=== PATIENT | male | born 1975 | race Caucasian/White ===

== ENCOUNTER 2020-06-04 09:04 | Outpatient (NON) | payer OTHER, SELFPAY ==
[2020-06-04 19:43] LABS: SARS-CoV-2 RNA PCR Positive
== END 2020-06-04 09:05 ==
PROVIDERS: Visit Provider Family Medicine Sports Medicine
DX: U07.1 COVID-19 (principal); R05 Cough; R53.83 Other fatigue; R09.81 Nasal congestion
CPT/HCPCS: C9803; U0003

== ENCOUNTER 2021-06-17 09:28 | Emergency (ER) | payer OTHER, SELFPAY ==
--- NOTE | ~2021-06-17 | CT_ITS ---
EXAMINATION: CT abdomen pelvis w con DATE: 06/17/2021 17:09 INDICATION: Right lower quadrant abdominal pain. TECHNIQUE: Computed tomography (CT) of the abdomen and pelvis was performed with 100 mL Omnipaque 350 intravenous contrast. Automated exposure control and iterative reconstruction technique were employe d. The dose-length product was 1416.24 mGy-cm. COMPARISON: None. FINDINGS: The visualized portions of the lung bases are clear without pneumonia or pleural effusion. The heart size is normal. No pericardial effusion. The liver, gallbladder, spleen, pancreas, adrenal glands, and kidneys are normal. There are no dilated loops of bowel. The appendix is normal. There is diverticulosis of the colon without evidence of diverticulitis. There is an umbilical hernia contain ing fat. There are bilateral inguinal hernias containing fat. There are no pathologically enlarged ly mph nodes. There is no free intraperitoneal fluid. There is severe lower lumbar spondylosis. IMPRESSION: 1. Umbilical hernia and bilateral inguinal hernias containing fat. Reviewed, dictated and finalized at location A. [employer]
[2021-06-17 09:51] VITALS: BP 157/109; PULSE 104; RESP 18; TEMP 36.5; O2SAT 98
[2021-06-17 12:18] VITALS: BP 142/91; PULSE 92; TEMP 36.2; O2SAT 96
[2021-06-17 16:27] VITALS: BP 165/108; PULSE 87; RESP 28; O2SAT 94
[2021-06-17 16:34] LABS: Basophils Absolute Auto 0.1 K/mm3 (0.0-0.1); Basophils Percent Auto 0.5 % (0.2-1.2); Eosinophils Absolute Auto 0.2 K/mm3 (0-0.3); Eosinophils Percent Auto 1.7 % (0-4.4); Hematocrit 47.9 % (42.0-52.0); Hemoglobin 16.3 g/dL (14.0-18.0); Immature Granulocyte Absolute 0.11 K/mm3 (0.00-0.031); Lymphocytes Absolute Auto 3.61 K/mm3 (0.9-3.2); Mean Corpuscular Hemoglobin 31.9 pg (26-34); Mean Corpuscular Volume 93.7 fl (80-100); Mean Platelet Volume 8.9 fl (7.4-10.4); Monocytes Absolute Auto 0.7 K/mm3 (0.1-0.6); Monocytes Percent Auto 5.9 % (2.6-8.5); Neutrophils Absolute Auto 6.6 K/mm3 (1.3-6.7); Neutrophils Percent Auto 58.9 % (45.5-73.1); Platelet Count Result 280 k/mm3 (150-375); Red Blood Count 5.11 M/mm3 (4.6-6.20); Red Cell Distribution Width 12.3 % (11.5-14.5); White Blood Count 11.3 K/mm3 (4.5-10.0)
--- NOTE | 2021-06-17 16:36 | ED.GENADULT ---
HPI - General Adult General Chief complaint: Abdominal Pain Stated complaint: rlq pain Time Seen by Provider: 06/17/21 15:56 Source: patient and RN notes reviewed History of Present Illness HPI narrative: Patient is a 46 y/o male complaining of right side pain starting this morning. He describes his pain as aching and rates it as 7/10. There is no pain radiation. There is no alleviating or exacerbating factor. He has no dysuria, hematuria, vomiting or diarrhea. He states that he fell 2 days ago and had some right back pain, but did not have immediate right side pain. Related Data Home Medications Medication Instructions Recorded Confirmed amlodipine PO DAILY 06/17/21 hydrochlorothiazide PO DAILY 06/17/21 Allergies Allergy/AdvReac Type Severity Reaction Status Date / Time No Known Allergies Allergy Verified 06/17/21 16:33 Review of Systems Constitutional: Constitutional: Denies chills, Denies fever(s), Denies headache(s) and Denies weakness Eyes: Eyes: Denies blurry vision ENT: Denies headache(s) and Denies neck pain Cardiovascular: Cardiovascular: Denies chest pain and Denies dyspnea Respiratory: Respiratory: Denies cough and Denies dyspnea Gastrointestinal: Gastrointestinal: Reports abdominal pain, Denies diarrhea, Denies nausea and Denies vomiting Genitourinary: Genitourinary: Denies hematuria and Denies dysuria Musculoskeletal: Musculoskeletal: Denies back pain and Denies neck pain Neurologic: Denies headache(s) and Denies weakness Exam Const: General: no acute distress and well developed Orientation/consciousness: oriented to person, oriented to place, oriented to time and patient oriented x3 HENMT: Head: normocephalic Ears: external ears normal General nose exam: Normal external nose present Eyes: General: appearance normal, both eyes and all related structures Conjunctivae: conjunctivae normal Neck: Neck: normal visual inspection and full ROM Chest: Chest palpation & inspection: normal inspection of the chest and no tenderness Resp: Effort & Inspection: normal respiratory effort Auscultation: clear to auscultation bilaterally Cardio: Rate: regular rate Rhythm: regular rhythm GI: GI Palp: No abdominal tenderness and Yes Soft to palpation Skin: General skin exam: normal color and turgor normal Neuro: General: oriented to person, oriented to place, oriented to time and patient oriented x3 Cognition (Neuro): normal cognition Extrem: General: normal to inspection, full ROM and no pedal edema Psych: Appearance: grossly normal Mental Status: mental status grossly normal Affect: normal affect Course Vital Signs Vital signs: Vital Signs Temperature 36.5 C 06/17/21 09:51 Pulse Rate 104 H 06/17/21 09:51 Respiratory Rate 18 06/17/21 09:51 Blood Pressure 157/109 H 06/17/21 09:51 Pulse Oximetry 98 06/17/21 09:51 Temperature 36.2 C L 06/17/21 12:18 Pulse Rate 87 06/17/21 18:31 Respiratory Rate 16 06/17/21 18:31 Blood Pressure 150/99 H 06/17/21 18:31 Pulse Oximetry 98 06/17/21 18:31 Medical Decision Making Vital Signs Vital Signs: Vital Signs Temperature 36.5 C 06/17/21 09:51 Pulse Rate 104 H 06/17/21 09:51 Respiratory Rate 18 06/17/21 09:51 Blood Pressure 157/109 H 06/17/21 09:51 Pulse Oximetry 98 06/17/21 09:51 Temperature 36.2 C L 06/17/21 12:18 Pulse Rate 87 06/17/21 18:31 Respiratory Rate 16 06/17/21 18:31 Blood Pressure 150/99 H 06/17/21 18:31 Pulse Oximetry 98 06/17/21 18:31 Lab Data Result diagrams: 06/17/21 16:24 06/17/21 16:24 Labs: Lab Results 06/17/21 06/17/21 06/17/21 Range/Units 16:24 16:24 16:24 WBC 11.3 H (4.5-10.0) K/mm3 RBC 5.11 (4.6-6.20) M/mm3 Hgb 16.3 (14.0-18.0) g/dL Hct 47.9 (42.0-52.0) % MCV 93.7 (80-100) fl MCH 31.9 (26-34) pg MCHC 34.0 (32-36) g/dl RDW 12.3 (11.5-14.5) % Plt Count 280 (150-375) k/
[2021-06-17 16:38] LABS: Add Urine Microscopic? YES; Appearance Urine Clear (Clear); Bilirubin Urine Negative (Negative); Blood Urine Negative (Negative); Color Urine Yellow (Yellow); Glucose Urine UA Negative (Negative); Ketones Urine Negative (Negative); Leukocyte Esterase Ur Trace LEU/UL (Negative); Mucus Urine Rare /lpf; Nitrate Urine Negative (Negative); Protein Urine Negative (Negative); RBC Urine 0-2 /hpf (0-2); Specific Grav Ur 1.024 (1.001-1.035); Squamous Epithelial Cell Urine Few /hpf (Few); Urobilinogen Urine Negative mg/dL (<2.0)
[2021-06-17 16:40] LABS: Alanine Aminotransferase 23 U/L (4-50); Albumin Level 4.4 g/dL (3.5-5.1); Alkaline Phosphatase 53 U/L (38-126); Anion Gap 10 mmol/L (8-16); Aspartate Amino Transferase 26 U/L (17-59); Bilirubin,Total 0.7 mg/dL (0.2-1.3); Blood Urea Nitrogen 16 mg/dL (9-20); Calcium 9.5 mg/dL (8.4-10.2); Carbon Dioxide 27 mmol/L (22-30); Chloride 100 mmol/L (98-107); Estimated CRCL calculation 112 ml/min; Estimated Glomerular Filt Rate > 60; Glucose 101 mg/dL (65-110); Potassium 4.1 mmol/L (3.4-5.0); Sodium 137 mmol/L (137-145)
[2021-06-17] MEDS: KETOROLAC 30 MG/ML VIAL (*BKC) IV PUSH (16:46)
--- NOTE | 2021-06-17 16:56 | PC.NURSE ---
patient states that this morning on his way to work he started having RUQ pain, getting worse throughout the day. denies nausea. voiding without complaints. no abdominal surgery history. alert and oriented. patient to CT at this time with IV access
[2021-06-17 18:31] VITALS: BP 150/99; PULSE 87; RESP 16; O2SAT 98
== END 2021-06-17 18:34 | disposition home or self-care (01) ==
PROVIDERS: Emergency Provider Emergency Medicine; PCP Family Medicine Sports Medicine
DX: S39.011A Strain of muscle, fascia and tendon of abdomen, initial encounter (principal); W19.XXXA Unspecified fall, initial encounter
CPT/HCPCS: 36415; 74177; 80053; 81001; 85025; 87086; 96374; 99284; J1885; Q9967